=== PATIENT | male | born 1975 | race African-American/Black ===

== ENCOUNTER 2018-10-11 10:43 | Emergency (ER) | payer OTHER ==
[2018-10-11 10:57] VITALS: BP 125/84; PULSE 78; TEMP 98.3; BMI 23.5
--- NOTE | 2018-10-11 12:37 | PDOC ---
History of Present Illness - General History Source: Patient Exam Limitations: No Limitations - History of Present Illness Initial Comments: 10/11/18 13:29 The patient is a 43 year old male, with no significant past medical history, who presents to the emergency department with, 2 days of testicular pain. As per patient, the pain onset localized to the left testicle now progressed to bilateral testicles and abdomen. Patient endorses an associated dysuria and concentrated urine, prompting his visit to the ER. He denies any recent fevers, chills, headache or dizziness. He denies any recent nausea, vomit, diarrhea or constipation. He denies any recent chest pain or shortness of breath. He denies any recent frequency, urgency or hematuria. Allergies: NKDA <Carlos Alberto Carroll - Last Filed: 10/11/18 13:29> <Lilliana Wren - Last Filed: 10/11/18 15:03> - General Chief Complaint: Pain Stated Complaint: POSS HERNIA Time Seen by Provider: 10/11/18 11:56 Past History <Carlos Alberto Carroll - Last Filed: 10/11/18 13:29> - Past Medical History COPD: No - Suicide/Smoking/Psychosocial Hx Smoking History: Never smoked <Lilliana Wren - Last Filed: 10/11/18 15:03> - Past Medical History Allergies/Adverse Reactions: Allergies Allergy/AdvReac Type Severity Reaction Status Date / Time No Known Allergies Allergy Verified 10/11/18 10:50 Home Medications: Ambulatory Orders NK [No Known Home Medication] 10/11/18 Review of Systems - Review of Systems Able to Perform ROS?: Yes Comments:: 10/11/18 13:29 GENERAL/CONSTITUTIONAL: No fever or chills. No weakness. HEAD, EYES, EARS, NOSE AND THROAT: No change in vision. No ear pain or discharge. No sore throat. CARDIOVASCULAR: No chest pain or shortness of breath. RESPIRATORY: No cough, wheezing, or hemoptysis. GASTROINTESTINAL: No nausea, vomiting, diarrhea or constipation. GENITOURINARY: +Dysuria. +Concentrated urine. +Blt testicular pain. MUSCULOSKELETAL: No joint or muscle swelling or pain. No neck or back pain. SKIN: No rash NEUROLOGIC: No headache, vertigo, loss of consciousness, or change in strength/ sensation. ENDOCRINE: No increased thirst. No abnormal weight change. HEMATOLOGIC/LYMPHATIC: No anemia, easy bleeding, or history of blood clots. ALLERGIC/IMMUNOLOGIC: No hives or skin allergy. All Other Systems: Reviewed and Negative <Carlos Alberto Carroll - Last Filed: 10/11/18 13:29> *Physical Exam - Vital Signs Last Vital Signs Temp Pulse Resp BP Pulse Ox 98.3 F 78 16 125/84 10/11/18 10:50 10/11/18 10:50 10/11/18 10:50 10/11/18 10:50 <Carlos Alberto Carroll - Last Filed: 10/11/18 13:29> - Vital Signs Last Vital Signs Temp Pulse Resp BP Pulse Ox 98.3 F 78 16 125/84 10/11/18 10:50 10/11/18 10:50 10/11/18 10:50 10/11/18 10:50 <Lilliana Wren - Last Filed: 10/11/18 15:03> Moderate Sedation - Procedure Monitoring Vital Signs: Procedure Monitoring Vital Signs Temperature 98.3 F 10/11/18 10:50 Pulse Rate 78 10/11/18 10:50 Respiratory Rate 16 10/11/18 10:50 Blood Pressure 125/84 10/11/18 10:50 O2 Sat by Pulse Oximetry (%) <Carlos Alberto Carroll - Last Filed: 10/11/18 13:29> - Procedure Monitoring Vital Signs: Procedure Monitoring Vital Signs Temperature 98.3 F 10/11/18 10:50 Pulse Rate 78 10/11/18 10:50 Respiratory Rate 16 10/11/18 10:50 Blood Pressure 125/84 10/11/18 10:50 O2 Sat by Pulse Oximetry (%) <Lilliana Wren - Last Filed: 10/11/18 15:03> ED Treatment Course - Medications Given in the ED: ED Medications Discontinued Medications Generic Name Dose Route Start Last Admin Trade Name Freq PRN Reason Stop Dose Admin Ibuprofen 600 mg 10/11/18 12:54 10/11/18 12:58 Motrin - PO 10/11/18 12:55 600 mg ONCE ONE Administration <Carlos Alberot Carroll - Last Filed: 10/11/18 13:29> - LABORATORY CBC & Chemistry Diagram: 10/11/18 13:39 10/11/18 13:39 <Lilliana Wren - Last Filed: 10/11/18 15:03> *DC/Admit/Observation/Transfer - Attestations Scribe Attestion: 10/11/18 13:31 Documentation prepared by Carlos Alberto Carroll, acting as registered medical transcriptionist for Lilliana Wren MD. <Carlos Alberto Carroll - Last Filed: 10/11/18 13:29> - Discharge Dispostion Decision to Admit order: No <Lilliana Wren - Last Filed: 10/11/18 15:03> Diagnosis at time of Disposition: Testicular pain - Discharge Dispostion Disposition: HOME Condition at time of disposition: Stable - Patient Instructions Printed Discharge Instructions: DI for Testicular Pain
[2018-10-11] MEDS ORDERED: IBUPROFEN 600 MG TABLET (FP) PO ONE ×2 (12:54→12:56)
[2018-10-11 13:36] LABS: URINE APPEARANCE CLEAR; URINE GLUCOSE (UA) NEGATIVE (NEGATIVE); URINE KETONE TRACE (NEGATIVE); URINE LEUK ESTERASE TRACE (NEGATIVE); URINE NITRITE NEGATIVE (NEGATIVE); URINE PROTEIN 1+ (NEGATIVE); URINE UROBILINOGEN 4.0 E.U/dl mg/dL (0.2-1.0)
[2018-10-11 13:37] LABS: URINE COLOR YELLOW
[2018-10-11 13:42] LABS: BASO % 0.4 % (0-2.0); EOS % 1.3 % (0-4.5); HEMATOCRIT 37.7 % (35.4-49); HEMOGLOBIN 12.8 GM/dL (11.7-16.9); LYMPH % 23.4 % (8-40); MCH 31.4 pg (25.7-33.7); MCHC 33.8 g/dl (32.0-35.9); MEAN PLT VOLUME 8.6 fl (7.5-11.1); MONO % 10.5 % (3.8-10.2); NEUT % 64.4 % (42.8-82.8); PLATELET COUNT 196 K/MM3 (134-434); RBC 4.06 M/mm3 (4.00-5.60); RDW 15.3 % (11.9-15.9); WHITE BLOOD COUNT 6.9 K/mm3 (4.0-10.0)
[2018-10-11 13:52] LABS: EPI CELLS RARE /HPF (FEW); URINE MUCUS MANY
[2018-10-11 14:30] LABS: ALBUMIN 4.2 g/dl (3.4-5.0); ALK PHOS 85 U/L (45-117); ANION GAP 8 MMOL/L (8-16); BILIRUBIN,TOTAL 0.9 mg/dL (0.2-1); BLOOD UREA NITROGEN 10 mg/dL (7-18); CALCIUM 9.2 mg/dL (8.5-10.1); CHLORIDE 105 mmol/L (98-107); CO2 24 mmol/L (21-32); GLUCOSE,RANDOM 100 mg/dL (74-106); POTASSIUM 4.1 mmol/L (3.5-5.1); SGOT/AST 45 U/L (15-37); SGPT/ALT 44 U/L (13-61); SODIUM 138 mmol/L (136-145); TOT PROT 7.9 g/dl (6.4-8.2)
== END 2018-10-11 16:12 | disposition home or self-care (01) ==
LOC: JER 10:43
DX: N50.812 Left testicular pain (principal); N50.811 Right testicular pain
CPT/HCPCS: 36415; 76870-TC; 80053; 81003; 81015; 85025; 87086; 87491; 87591; 99283-25